=== PATIENT | female | born 1955 | race Caucasian/White ===

== ENCOUNTER 2016-07-17 00:11 | Emergency (ER) | payer OTHER ==
[~2016-07-17] VITALS: Ht 162.6 cm; Wt 113.4 kg
[~2016-07-17 00:11] MED LIST: ASPI-482 PO; ATOR40TA59 PO; FLUC150T2 PO; FURO20TA3 PO; LISI2.5T PO; OMEP40CA5 PO; PIOG1TAB15 PO; SITA100T PO
--- NOTE | 2016-07-17 02:22 | ED.ADGEN ---
Past Medical History Past Medical History: Diabetes-Type I, GERD, High Cholesterol, Hypertension Additional Past Medical Histor: dvt sleep apnea Past Surgical History: Cholecystectomy Additional Past Surgical Histo: knee sx Alcohol Use: None Drug Use: None Adult General Chief Complaint Chief Complaint: DIZZY/LIGHT HEADED HPI HPI Patient is a 61 year old woman, with a history of Mnire's disease, obesity, present to the emergency department with a complaint of a severe episode of Mni re's. Patient states that around 5:30 in the evening, she began experiencing her typical symptoms of dizziness, lightheadedness, and headache, worse on the right side of her head, suspected pins and needles in her arms and legs. She states that she took a dose of her meclizine, 25 mg, and that after several hours her symptoms were improved, however she was still expressing some symptoms , and the had not fully resolved and she began expressing some worsening dizziness around 11:00, and took a second dose of her meclizine. She states that she then came to the ED for additional evaluation after speaking to family members who were concerned that the episodes had been more prolonged than usual. Patient states that she would had a similar episode that was more prolonged, and required 2 doses of medication before resolved. At this time she states that she is feeling better, with resolution of her lightheadedness, vertiginous symptoms, and near resolution of her headache. Lengthy discussion at bedside with patient regarding potential evaluation of her symptoms, including imaging of the head, laboratory studies, versus continue to monitor the patient and attempting ambulatory trial. This time the patient states that she is feeling well enough where she preferred to attempted an ambulatory trial, and reassessment of her symptoms before proceeding with additional evaluation. Patient was ambulatory trial in the ED, denied any return of her vertiginous type symptoms, although she still is a mild headache, she states this is frequent after she has her episodes of Mnire's, and the headaches can last for many hours. She denies any changes in symptoms. I really assessed and reevaluate the patient, at this time she stating that she is feeling better, and will like to be discharged home, I discussed with the patient that she should follow-up with her doctor tomorrow as she has now had several episodes of more severe and more frequent attacks, and recommended that she increase her intake of meclizine to 50 mg from 25 as needed up to 3 times a day. Patient voiced understanding and agreement with this recommendation, and also with the concerning symptoms were discussed at bedside to prompt return. Patient discharged home in stable condition with her . Review of Systems Review of Systems Constitutional: Denies fever or chills. [] Eyes: Denies change in visual acuity. [] HENT: Denies nasal congestion or sore throat. [] Respiratory: Denies cough or shortness of breath. [] Cardiovascular: Denies chest pain or edema. [] GI: Denies abdominal pain, nausea, vomiting, bloody stools or diarrhea. [] : Denies dysuria. [] Musculoskeletal: Denies back pain or joint pain. [] Integument: Denies rash. [] Neurologic: Denies focal weakness or sensory changes. Headache and vertiginous symptoms. Endocrine: Denies polyuria or polydipsia. [] Lymphatic: Denies swollen glands. [] Psychiatric: Denies depression or anxiety. [] Allergies Allergies Allergies Coded Allergies Type Severity Reaction Last Updated Verified Sulfa (Sulfonamide Antibiotics) Allergy Intermediate 03/30/16 Yes Physical Exam Physical Exam Constitutional: Well developed, well nourished, no acute distress, non-toxic appearance. [] HENT: Normocephalic, atraumatic, bilateral external ears normal, oropharynx moist, no oral exudates, nose normal. [] Eyes: PERRLA, EOMI, conjunctiva normal, no discharge. [] Neck: Normal range of motion, no tenderness, supple, no stridor. [] Cardiovascular:Heart rate regular rhythm, no murmur [] Lungs & Thorax: Bilateral breath sounds clear to auscultation [] Abdomen: Bowel sounds normal, soft, no tenderness, no masses, no pulsatile masses. [] Skin: Warm, dry, no erythema, no rash. [] Back: No tenderness, no CVA tenderness. [] Extremities: No tenderness, no cyanosis, no clubbing, ROM intact, no edema. [] Neurologic: Alert and oriented X 3, normal motor function, normal sensory function, no focal deficits noted. [] Psychologic: Affect normal, judgement normal, mood normal. [] Current Patient Data Vital Signs Vital Signs Date Time Temp Pulse Resp B/P Pulse Ox O2 Delivery O2 Flow Rate FiO2 07/17/16 00:50 97.9 83 16 117/59 99 Room Air 97.9 EKG EKG EC: Sinus rhythm, heart rate 87 bpm, upright axis, single PVC noted, QRS of 482, QRS of 80, patient with contour abnormalities noted in the lateral leads , Q waves noted in lead 3, but no ST elevations or depressions, abnormal ECG, does not meet STEMI criteria. As inserted by me. Radiology/Procedures Radiology/Procedures [] Impressions: Not indicated. Course & Med Decision Making Course & Med Decision Making Pertinent Labs and Imaging studies reviewed. (See chart for details) [] Dragon Disclaimer Dragon Disclaimer This electronic medical record was generated, in whole or in part, using a voice recognition dictation system. Departure Impression: Primary Impression: Menetrier disease Disposition: 01 HOME, SELF-CARE Condition: IMPROVED RAINE BALL DO Jul 17, 2016 02:22
[2016-07-17 02:29] VITALS: BP 101/57
--- NOTE | 2016-07-17 07:31 | EKG ---
[facility] [address] [place] [address] Test Date: 2016-07-17 Test Time: 00:38:31 Pat Name: KRYSTAL JONES Department: Room: Gender: F Neck Skewer: : 1955 Requested By: RAINE BALL Order Number: [id number] Reading MD: Radha Luciano Measurements Intervals Western Rate: 87 P: LA: QRS: 168 QRSD: 80 T: 156 QT: 400 QTc: 482 Interpretive Statements SINUS RHYTHM, ABNORMAL RIGHT AXIS DEVIATION QRS(T) CONTOUR ABNORMALITY CONSISTENT WITH HIGH LATERAL INFARCT AGE UNDETERMINED Electronically Signed On 07-19-2016 23:54:40 PIPELINE TECHNICIAN by Radha Luciano
== END 2016-07-17 02:33 | disposition home or self-care (01) ==
LOC: ER 00:11
DX: K29.60 Other gastritis without bleeding (principal); R42 Dizziness and giddiness; R51 Headache; E10.9 Type 1 diabetes mellitus without complications; E66.9 Obesity, unspecified; E78.00 Pure hypercholesterolemia, unspecified; G47.30 Sleep apnea, unspecified; I10 Essential (primary) hypertension; K21.9 Gastro-esophageal reflux disease without esophagitis; Z86.718 Personal history of other venous thrombosis and embolism; Z88.2 Allergy status to sulfonamides; Z90.49 Acquired absence of other specified parts of digestive tract
CPT/HCPCS: 93005; 99283-25; 99284-25

== ENCOUNTER → 2016-08-22 | Outpatient (CLI) | payer SELFPAY ==
[2016-08-22 10:07] LABS: ALBUMIN 3.6 g/dL (3.4-5.0); ALBUMIN/GLOBULIN RATIO 0.9 (1.0-1.7); CALCIUM 9.3 mg/dL (8.5-10.1); CREATININE 0.8 mg/dL (0.6-1.0); GFR 73.2; TOTAL BILIRUBIN 0.8 mg/dL (0.2-1.0); TOTAL PROTEIN 7.4 g/dL (6.4-8.2)
[2016-08-22 14:49] LABS: BILIRUBIN,URINE NEGATIVE (NEG); GLUCOSE,URINE NEGATIVE (NEG); NITRITE,URINE NEGATIVE (NEG); PH,URINE 6.5; PROTEIN,URINE NEGATIVE (NEG-TRACE); UROBILINOGEN,URINE 0.2 mg/dL (0.2 mg/dL)
[2016-08-22 15:25] LABS: BACTERIA,URINE 0 /HPF (0-FEW); WBC,URINE TNTC /HPF (0-4)
== END | disposition home or self-care (01) ==
LOC: LAB 09:04
PROVIDERS: ATTEND Family Medicine
DX: E11.9 Type 2 diabetes mellitus without complications (principal)
CPT/HCPCS: 36415; 80053; 80061; 81001; 82043; 83036; 87086

== ENCOUNTER → 2017-04-04 | Outpatient (CLI) | payer OTHER ==
[~2017-04-04] MED LIST changes: -PIOG1TAB15 PO; +PIOG1TAB24 PO
[2017-04-04 09:18] LABS: ALBUMIN 3.5 g/dL (3.4-5.0); ALBUMIN/GLOBULIN RATIO 0.9 (1.0-1.7); CREATININE 0.8 mg/dL (0.6-1.0); GFR 73.2; POTASSIUM 3.9 mmol/L (3.5-5.1); TOTAL BILIRUBIN 0.6 mg/dL (0.2-1.0); TOTAL PROTEIN 7.4 g/dL (6.4-8.2)
[2017-04-04 09:20] LABS: CHOLESTEROL/HDL RATIO 2.9
== END | disposition home or self-care (01) ==
LOC: LAB 08:28
PROVIDERS: ATTEND Family Medicine
DX: E11.9 Type 2 diabetes mellitus without complications (principal); E78.5 Hyperlipidemia, unspecified
CPT/HCPCS: 36415; 80053; 80061; 83036

== ENCOUNTER → 2017-04-24 | Outpatient (CLI) | payer OTHER ==
[2017-04-24 10:06] LABS: BASO # 0.1 x10^3/uL (0.0-0.2); BASO % 1 % (0-3); EOS % 3 % (0-3); HEMATOCRIT 37.4 % (36.0-47.0); HEMOGLOBIN 12.6 g/dL (12.0-15.5); LYMPH # 3.1 x10^3/uL (1.0-4.8); LYMPH % 37 % (24-48); MEAN CORPUSCULAR HEMOGLOBIN 29 pg (25-35); MEAN CORPUSCULAR HGB CONC 34 g/dL (31-37); MEAN CORPUSCULAR VOLUME 87 fL (79-100); MONO % 7 % (0-9); NEUT % 52 % (31-73); PLATELET COUNT 242 x10^3/uL (140-400); RED BLOOD COUNT 4.33 x10^6/uL (3.50-5.40); RED CELL DISTRIBUTION WIDTH 14.4 % (11.5-14.5); WHITE BLOOD COUNT 8.2 x10^3/uL (4.0-11.0)
== END | disposition home or self-care (01) ==
LOC: LAB 09:11
PROVIDERS: ATTEND Family Medicine
DX: L60.3 Nail dystrophy (principal)
CPT/HCPCS: 36415; 83540; 84443; 85025

== ENCOUNTER → 2017-05-09 | Outpatient (CLI) | payer OTHER ==
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
== END | disposition home or self-care (01) ==
LOC: KCIC US 15:10
PROVIDERS: ATTEND Orthopaedic Surgery Sports Medicine
DX: M79.662 Pain in left lower leg (principal); M79.89 Other specified soft tissue disorders
CPT/HCPCS: 93971

== ENCOUNTER → 2017-10-09 | Outpatient (CLI) | payer OTHER ==
[2017-10-09 10:18] LABS: ALBUMIN 3.5 g/dL (3.4-5.0); ALBUMIN/GLOBULIN RATIO 0.9 (1.0-1.7); ALK PHOS 102 U/L (46-116); ALT (SGPT) 31 U/L (14-59); ANION GAP 9 (6-14); AST (SGOT) 19 U/L (15-37); BLOOD UREA NITROGEN 16 mg/dL (7-20); BUN/CREATININE RATIO 20 (6-20); CARBON DIOXIDE 28 mmol/L (21-32); CHLORIDE 103 mmol/L (98-107); CHOLESTEROL 143 mg/dL (0-200); CREATININE 0.8 mg/dL (0.6-1.0); GFR 72.9; GLUCOSE 131 mg/dL (70-99); HDLC 54 mg/dL (40-60); LDLC 79 mg/dL (0-100); NON-HDL CHOLESTEROL 89 mg/dL (0-129); POTASSIUM 4.6 mmol/L (3.5-5.1); SODIUM 140 mmol/L (136-145); TOTAL BILIRUBIN 0.8 mg/dL (0.2-1.0); TOTAL PROTEIN 7.5 g/dL (6.4-8.2); TRIGLYCERIDES 49 mg/dL (0-150); VLDLC 10 mg/dL (0-40)
[2017-10-09 10:19] LABS: BILIRUBIN,URINE NEGATIVE (NEG); CHOLESTEROL/HDL RATIO 2.6; CLARITY,URINE CLEAR; COLOR,URINE YELLOW; GLUCOSE,URINE NEGATIVE (NEG); NITRITE,URINE NEGATIVE (NEG); PROTEIN,URINE NEGATIVE (NEG-TRACE); UROBILINOGEN,URINE 0.2 mg/dL (0.2 mg/dL)
[2017-10-09 10:27] LABS: SQUAMOUS EPITHELIAL CELL,UR FEW /LPF
[2017-10-09 10:28] LABS: BACTERIA,URINE FEW /HPF (0-FEW); RBC,URINE 0 /HPF (0-2)
[2017-10-10 00:10] LABS: HEMOGLOBIN A1C 6.2 % (4.8-5.6)
== END | disposition home or self-care (01) ==
LOC: LAB 09:48
DX: E11.9 Type 2 diabetes mellitus without complications (principal); E78.00 Pure hypercholesterolemia, unspecified
CPT/HCPCS: 36415; 80053; 80061; 81001; 83036; 87086

== ENCOUNTER → 2018-05-02 | Outpatient (CLI) | payer OTHER ==
[2018-05-02 09:50] LABS: ALBUMIN 3.6 g/dL (3.4-5.0); ALBUMIN/GLOBULIN RATIO 0.8 (1.0-1.7); CALCIUM 9.5 mg/dL (8.5-10.1); CREATININE 0.9 mg/dL (0.6-1.0); GFR 63.7; POTASSIUM 3.9 mmol/L (3.5-5.1); TOTAL BILIRUBIN 0.7 mg/dL (0.2-1.0); TOTAL PROTEIN 7.9 g/dL (6.4-8.2)
[2018-05-02 09:52] LABS: CHOLESTEROL/HDL RATIO 2.5
[2018-05-02 12:24] LABS: BILIRUBIN,URINE NEGATIVE (NEG); CLARITY,URINE CLEAR; COLOR,URINE YELLOW; NITRITE,URINE NEGATIVE (NEG); PH,URINE 6.5; PROTEIN,URINE NEGATIVE (NEG-TRACE); UROBILINOGEN,URINE 0.2 mg/dL (0.2 mg/dL)
[2018-05-02 12:39] LABS: BACTERIA,URINE FEW /HPF (0-FEW); RBC,URINE 0 /HPF (0-2); SQUAMOUS EPITHELIAL CELL,UR FEW /LPF
[2018-05-02 19:17] LABS: HEMOGLOBIN A1C 6.4 % (4.8-5.6)
== END | disposition home or self-care (01) ==
LOC: LAB 08:46
PROVIDERS: ATTEND Family Medicine
DX: E78.00 Pure hypercholesterolemia, unspecified (principal); E11.9 Type 2 diabetes mellitus without complications
CPT/HCPCS: 36415; 80053; 80061; 81001; 83036; 87086

== ENCOUNTER → 2019-03-13 | Outpatient (CLI) | payer OTHER ==
[2019-03-13 09:36] LABS: BASO # 0.1 x10^3/uL (0.0-0.2); BASO % 1 % (0-3); EOS # 0.2 x10^3/uL (0.0-0.7); EOS % 3 % (0-3); HEMATOCRIT 40.7 % (36.0-47.0); HEMOGLOBIN 13.9 g/dL (12.0-15.5); LYMPH # 2.5 x10^3/uL (1.0-4.8); LYMPH % 33 % (24-48); MEAN CORPUSCULAR HEMOGLOBIN 29 pg (25-35); MEAN CORPUSCULAR HGB CONC 34 g/dL (31-37); MEAN CORPUSCULAR VOLUME 86 fL (79-100); MONO # 0.6 x10^3/uL (0.0-1.1); MONO % 8 % (0-9); NEUT # 4.1 x10^3/uL (1.8-7.7); NEUT % 55 % (31-73); PLATELET COUNT 240 x10^3/uL (140-400); RED BLOOD COUNT 4.75 x10^6/uL (3.50-5.40); RED CELL DISTRIBUTION WIDTH 14.3 % (11.5-14.5); WHITE BLOOD COUNT 7.5 x10^3/uL (4.0-11.0)
[2019-03-13 10:04] LABS: CALCIUM 9.7 mg/dL (8.5-10.1); CREATININE 0.9 mg/dL (0.6-1.0); GFR 63.4; POTASSIUM 4.1 mmol/L (3.5-5.1); TOTAL BILIRUBIN 0.8 mg/dL (0.2-1.0); TOTAL PROTEIN 8.1 g/dL (6.4-8.2)
[2019-03-13 10:06] LABS: CHOLESTEROL/HDL RATIO 3.1
[2019-03-13 10:15] LABS: FREE T4 1.16 ng/dL (0.76-1.46); THYROID STIM HORMONE (TSH) 0.671 uIU/mL (0.358-3.74)
[2019-03-14 03:12] LABS: HEMOGLOBIN A1C 6.6 % (4.8-5.6)
== END | disposition home or self-care (01) ==
LOC: LAB 09:13
PROVIDERS: ATTEND Nurse Practitioner Family
DX: E11.9 Type 2 diabetes mellitus without complications (principal); I10 Essential (primary) hypertension; E78.5 Hyperlipidemia, unspecified
CPT/HCPCS: 36415; 80053; 80061; 82043; 83036; 84439; 84443; 85025

== ENCOUNTER → 2019-04-09 | Outpatient (CLI) | payer OTHER ==
[~2019-04-09] MED LIST changes: +OMEP40CA45 PO; -OMEP40CA5 PO
[2019-04-09 14:57] LABS: BILIRUBIN,URINE NEGATIVE (NEG); CLARITY,URINE CLEAR; COLOR,URINE YELLOW; NITRITE,URINE NEGATIVE (NEG); PROTEIN,URINE NEGATIVE (NEG-TRACE); UROBILINOGEN,URINE 0.2 mg/dL (0.2 mg/dL)
[2019-04-09 15:19] LABS: BACTERIA,URINE 0 /HPF (0-FEW); RBC,URINE 0 /HPF (0-2); SQUAMOUS EPITHELIAL CELL,UR OCC /LPF; WBC,URINE RARE /HPF (0-4)
== END | disposition home or self-care (01) ==
LOC: LAB 14:28
PROVIDERS: ATTEND Family Medicine
DX: N39.0 Urinary tract infection, site not specified (principal)
CPT/HCPCS: 81001; 87086

== ENCOUNTER → 2019-06-30 | Outpatient (CLI) | payer OTHER ==
[2019-07-01 02:07] LABS: HEMOGLOBIN A1C 6.7 % (4.8-5.6)
== END | disposition home or self-care (01) ==
LOC: LAB 13:40
PROVIDERS: ATTEND Nurse Practitioner Family
DX: E11.9 Type 2 diabetes mellitus without complications (principal)
CPT/HCPCS: 36415; 83036

== ENCOUNTER 2019-09-24 17:22 | Emergency (ER) | payer OTHER ==
[~2019-09-24] VITALS: Ht 165.1 cm; Wt 110.3 kg
[2019-09-24] MEDS ORDERED: ACETAMINOPHEN 500 MG TABLET PO ONE (18:15)
[2019-09-24] MEDS ORDERED: DIPH,PERTUSS(ACELL),TET VAC/PF 0.5 ML SYRINGE. VAX IM ONE (19:00)
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
[2019-09-24] MEDS ORDERED: CYCL10TA2 PO (20:02)
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
[2019-09-24 20:33] VITALS: BP 110/69
== END 2019-09-24 20:33 | disposition home or self-care (01) ==
LOC: ER 17:22
DX: S16.1XXA Strain of muscle, fascia and tendon at neck level, initial encounter (principal); S50.12XA Contusion of left forearm, initial encounter; S60.212A Contusion of left wrist, initial encounter; R60.0 Localized edema; E11.9 Type 2 diabetes mellitus without complications; K21.9 Gastro-esophageal reflux disease without esophagitis; E78.00 Pure hypercholesterolemia, unspecified; I10 Essential (primary) hypertension; Z90.49 Acquired absence of other specified parts of digestive tract; Z98.890 Other specified postprocedural states; Z88.2 Allergy status to sulfonamides; V49.9XXA Car occupant (driver) (passenger) injured in unspecified traffic accident, initial encounter; Y93.89 Activity, other specified; Y92.413 State road as the place of occurrence of the external cause; Y99.8 Other external cause status
CPT/HCPCS: 73080; 73110; 73130; 90471; 90715; 99284

== ENCOUNTER → 2020-03-17 | Outpatient (CLI) | payer OTHER ==
[~2020-03-17] MED LIST changes: +CYCL10TA2 PO
[2020-03-17 10:13] LABS: HEMATOCRIT 39.7 % (36.0-47.0); HEMOGLOBIN 13.3 g/dL (12.0-15.5); RED BLOOD COUNT 4.65 x10^6/uL (3.50-5.40); RED CELL DISTRIBUTION WIDTH 14.4 % (11.5-14.5); WHITE BLOOD COUNT 7.1 x10^3/uL (4.0-11.0)
[2020-03-17 10:34] LABS: ALBUMIN 3.5 g/dL (3.4-5.0); CREATININE 0.8 mg/dL (0.6-1.0); GFR 72.4; TOTAL BILIRUBIN 0.8 mg/dL (0.2-1.0); TOTAL PROTEIN 7.1 g/dL (6.4-8.2)
[2020-03-17 10:35] LABS: CHOLESTEROL/HDL RATIO 3.4
[2020-03-17 10:41] LABS: FREE T4 1.15 ng/dL (0.76-1.46); THYROID STIM HORMONE (TSH) 0.746 uIU/mL (0.358-3.74)
[2020-03-18 01:09] LABS: HEMOGLOBIN A1C 7.3 % (4.8-5.6)
== END | disposition home or self-care (01) ==
LOC: LAB 09:37
PROVIDERS: ATTEND Nurse Practitioner Family
DX: E11.9 Type 2 diabetes mellitus without complications (principal); I10 Essential (primary) hypertension; E78.5 Hyperlipidemia, unspecified
CPT/HCPCS: 36415; 80053; 80061; 82043; 82306; 83036; 84439; 84443; 85027

== ENCOUNTER → 2021-01-10 | Outpatient (CLI) | payer OTHER ==
[~2021-01-10] MED LIST changes: -OMEP40CA45 PO; +OMEP40CA7 PO
[2021-01-10 10:02] LABS: BASO # 0.1 x10^3/uL (0.0-0.2); BASO % 2 % (0-3); EOS # 0.3 x10^3/uL (0.0-0.7); EOS % 5 % (0-3); HEMATOCRIT 38.5 % (36.0-47.0); HEMOGLOBIN 13.1 g/dL (12.0-15.5); LYMPH # 2.6 x10^3/uL (1.0-4.8); LYMPH % 41 % (24-48); MEAN CORPUSCULAR HEMOGLOBIN 30 pg (25-35); MEAN CORPUSCULAR HGB CONC 34 g/dL (31-37); MEAN CORPUSCULAR VOLUME 88 fL (79-100); MONO # 0.5 x10^3/uL (0.0-1.1); MONO % 8 % (0-9); NEUT # 2.9 x10^3/uL (1.8-7.7); NEUT % 45 % (31-73); PLATELET COUNT 246 x10^3/uL (140-400); RED CELL DISTRIBUTION WIDTH 14.1 % (11.5-14.5); WHITE BLOOD COUNT 6.4 x10^3/uL (4.0-11.0)
[2021-01-10 10:24] LABS: ALBUMIN 3.7 g/dL (3.4-5.0); CALCIUM 9.1 mg/dL (8.5-10.1); CREATININE 0.8 mg/dL (0.6-1.0); GFR 72.2; POTASSIUM 3.9 mmol/L (3.5-5.1); TOTAL BILIRUBIN 0.7 mg/dL (0.2-1.0); TOTAL PROTEIN 7.3 g/dL (6.4-8.2)
[2021-01-10 10:25] LABS: CHOLESTEROL/HDL RATIO 3.5
[2021-01-10 22:23] LABS: CREAT RD UR 64.8 mg/dL (Not Estab.); MICROALB RD UR 4.9 ug/mL (Not Estab.)
[2021-01-11 00:08] LABS: HEMOGLOBIN A1C 7.4 % (4.8-5.6)
== END ==
LOC: LAB 09:06
PROVIDERS: ATTEND Nurse Practitioner Family
DX: E11.9 Type 2 diabetes mellitus without complications (principal); I10 Essential (primary) hypertension; E78.5 Hyperlipidemia, unspecified
CPT/HCPCS: 80053; 80061; 82043; 82306; 82570; 83036; 84443; 85025